=== PATIENT | male | born 1945 | race Caucasian/White ===

== ENCOUNTER 2021-09-14 10:24 | Observation (INO) | payer OTHER ==
[~2021-09-14] VITALS: Ht 188 cm; Wt 108.7 kg
[2021-09-14 11:11] LABS: BASOPHILS ABSOLUTE AUTO 0.03 K/mm3 (0.00-0.23); BASOPHILS PERCENT AUTO 0 % (0-2); EOSINOPHILS ABSOLUTE AUTO 0.01 K/mm3 (0.00-0.68); EOSINOPHILS PERCENT AUTO 0 % (0-6); Hematocrit 35.2 % (37.0-53.0); Hemoglobin 12.3 g/dL (13.5-17.5); IMMATURE GRAN ABSOLUTE AUTO 0.03 K/mm3 (0.00-0.10); IMMATURE GRAN PERCENT AUTO 0 % (0-1); LYMPHOCYTES ABSOLUTE AUTO 1.12 K/mm3 (0.84-5.20); LYMPHOCYTES PERCENT AUTO 11 % (21-46); MONOCYTES ABSOLUTE AUTO 0.77 K/mm3 (0.16-1.47); MONOCYTES PERCENT AUTO 7 % (4-13); Mean Corpuscular HGB 33.1 pg (26.0-34.0); Mean Corpuscular HGB Conc 34.9 g/dL (31.5-36.5); Mean Corpuscular Volume 95 fL (80-100); Mean Platelet Volume 12.2 fL (9.1-12.4); NEUTROPHILS ABSOLUTE AUTO 8.66 K/mm3 (1.96-9.15); NEUTROPHILS PERCENT AUTO 82 % (41-73); Platelet Count 155 K/mm3 (150-400); RDW Coefficient Variation 12.9 % (11.7-14.2); RDW Standard Deviation 44.2 fL (35.1-46.3); Red Blood Cell Count 3.72 M/mm3 (4.30-5.90); White Blood Cell Count 10.62 K/mm3 (4.00-11.30)
[2021-09-14 11:22] LABS: Alanine Aminotransfer (ALT/SGP 23 U/L (12-78); Albumin, Blood 3.5 g/dL (3.4-5.0); Albumin/Globulin Ratio 1.1 (0.8-1.8); Alk Phos 82 U/L (50-136); Anion Gap 10 mmol/L (6-16); Aspartate Aminotrans (AST/SGOT 28 U/L (12-37); Blood Urea Nitrogen 37 mg/dL (8-24); Bun/Creatinine Ratio 36.3 (12.0-20.0); CO2, Blood 21 mmol/L (21-32); Chloride, Blood 112 mmol/L (98-108); Creatinine, Blood 1.02 mg/dL (0.60-1.20); Globulin, Blood 3.2 g/dL (2.2-4.0); Glomerular Filtration Rate >60 (60-); Glucose, Blood 124 mg/dL (70-99); Potassium, Blood 4.1 mmol/L (3.5-5.5); Sodium, Blood 143 mmol/L (136-145); Total Protein, Blood 6.7 g/dL (6.4-8.2)
[2021-09-14 11:39] LABS: Source, Urine Clean Catch
[2021-09-14 11:57] LABS: Appearance, Urine Clear (Clear); Bilirubin, Urine Neg (Neg); Blood, Urine Neg (Neg); Color, Urine Amber (P-Yellow); Glucose Qualitative, Urine Neg (Neg); Ketones, Urine Neg (Neg); Leukocyte Esterase, Urine Neg (Neg); Nitrite, Urine Neg (Neg); Protein, Urine 1+ (Neg); Urobilinogen, Urine NORM (Normal)
[2021-09-14 16:09] LABS: Influenza A, PCR NEGATIVE (NEGATIVE); Influenza B, PCR NEGATIVE (NEGATIVE); Resp Syncytial Virus, PCR NEGATIVE (NEGATIVE); SARS-Cov-2 (COVID-19) PCR, MMC NEGATIVE (NEGATIVE)
[2021-09-14 16:22] LABS: Hematocrit 34.7 % (37.0-53.0)
[2021-09-14] MEDS ORDERED: METO25 PO (17:38)
[2021-09-14] MEDS ORDERED: ELIQUIS2.5 MG PO (17:39)
--- NOTE | 2021-09-14 18:43 | NUR ---
1715 RECEIVED PT TO RM 339 VIA W/C FROM ER. PT IS A&O, PLEASANT AND CO-OP. ABLE TO TX SELF TO BED. ADMITTED FOR MELENA. RECEIVED REPORT FROM POORNIMA KLEIN. PT TO ER VIA EMS WITH C/O TARRY BLACK STOOLS X3 DAYS. PT STOP TAKING HIS ELIQUIS TUESDAY AM. CALLED EMS AFTER BECOMING DIZZY IN B[facility] THIS AM. HX OF A-FIB AND PACER. ALSO HX OF COLON CA, IN REMISSION SINCE APPROX 2004, PER PT. UP TO RM WITH PROTONIX DRIP. DR ZIMMERMAN HERE RECENTLY TO SEE PT. CL DIET FOR DINNER AND AGAIN FOR BREAKFAST AND THEN JUST WATER PER DR ZIMMERMAN. ORDERS TO FOLLOW. SB AT 59 PER TELE MX. UP TO BTH[facility] INDEPENDENTLY TO VOID. CALL LT IN REACH. ABLE TO MAKE NEEDS KNOWN. RESTING QUIETLY WATCHING TV. DENIES FURTHER NEEDS. REPORT GIVEN TO FRANCISCO KLEIN.
--- NOTE | 2021-09-14 19:33 | NUR ---
RECEIVED REPORT FROM ERNIE REDD. PT A/O. INDEP IN RM. ON RA. PROT GTT INFUSING WITHOUT DIFFICULTY TO RAC. PACED AT 60 PER TELE MONITOR, JOSTIN. WILL PROVIDE CARE T/O SHIFT. CALL LT IN REACH.
--- NOTE | 2021-09-14 21:09 | NUR ---
PT AWAKE AND WATCHING TV. STATES HE'S DOING JUST FINE. PROT GTT INFUSING WITHOUT DIFFICULTY. NO NEEDS AT THIS TIME. CALL LT IN REACH.
--- NOTE | 2021-09-14 21:36 | NUR ---
PT WATCHING TV. NO NEEDS. CALL LT IN REACH.
[2021-09-14 23:00] LABS: Hematocrit 30.9 % (37.0-53.0); Hemoglobin 11.1 g/dL (13.5-17.5)
--- NOTE | 2021-09-15 04:04 | NUR ---
PT UP TO THE BATHROOM. STATES HE'S DOING OK JUST HAVING A HARD TIME RESTING AWAY FROM HOME. PROT GTT INFUSING WITHOUT DIFFICULTY. EXTRA PILLOW GIVEN. CALL LT IN REACH.
--- NOTE | 2021-09-15 04:13 | NUR ---
SHIFT SUMMARY: A/O. INDEP IN RM. RA. PACED AT 60 ON TELE. VSS. H & H STABLE. NO COMPLAINTS OF CP, SOB OR BEING LIGHT HEADED. PROT GTT INFUSING T/O SHIFT. UP TO BATHROOM WITHOUT DIFFICULTY. NO REPORTED STOOLS. PLAN IS EGD TODAY. NO ACUTE CHANGES. WILL CONTINUE TO PROVIDE CARE UNTIL SHIFT REPORT TO ONCOMING NURSE.
[2021-09-15 04:57] LABS: BASOPHILS ABSOLUTE AUTO 0.02 K/mm3 (0.00-0.23); BASOPHILS PERCENT AUTO 0 % (0-2); EOSINOPHILS ABSOLUTE AUTO 0.08 K/mm3 (0.00-0.68); EOSINOPHILS PERCENT AUTO 1 % (0-6); Hematocrit 31.6 % (37.0-53.0); Hemoglobin 11.1 g/dL (13.5-17.5); IMMATURE GRAN ABSOLUTE AUTO 0.01 K/mm3 (0.00-0.10); IMMATURE GRAN PERCENT AUTO 0 % (0-1); LYMPHOCYTES ABSOLUTE AUTO 2.03 K/mm3 (0.84-5.20); LYMPHOCYTES PERCENT AUTO 29 % (21-46); MONOCYTES ABSOLUTE AUTO 0.69 K/mm3 (0.16-1.47); MONOCYTES PERCENT AUTO 10 % (4-13); Mean Corpuscular HGB 32.5 pg (26.0-34.0); Mean Corpuscular HGB Conc 35.1 g/dL (31.5-36.5); Mean Corpuscular Volume 92 fL (80-100); Mean Platelet Volume 11.8 fL (9.1-12.4); NEUTROPHILS ABSOLUTE AUTO 4.12 K/mm3 (1.96-9.15); NEUTROPHILS PERCENT AUTO 59 % (41-73); Platelet Count 125 K/mm3 (150-400); RDW Standard Deviation 42.6 fL (35.1-46.3); Red Blood Cell Count 3.42 M/mm3 (4.30-5.90); White Blood Cell Count 6.95 K/mm3 (4.00-11.30)
--- NOTE | 2021-09-15 05:12 | NUR ---
NO NEEDS AT THIS TIME. CALL LT IN REACH.
[2021-09-15 05:53] LABS: Anion Gap 8 mmol/L (6-16); Blood Urea Nitrogen 28 mg/dL (8-24); Bun/Creatinine Ratio 29.4 (12.0-20.0); CO2, Blood 23 mmol/L (21-32); Calcium, Blood 8.9 mg/dL (8.5-10.1); Chloride, Blood 111 mmol/L (98-108); Creatinine, Blood 0.95 mg/dL (0.60-1.20); Glomerular Filtration Rate >60 (60-); Glucose, Blood 102 mg/dL (70-99); Sodium, Blood 142 mmol/L (136-145)
--- NOTE | 2021-09-15 13:34 | NUR ---
INTO [facility] FROM [facility]. History, Chart, Medications and Allergies reviewed before start of procedure.Patient confirms NPO status and agrees with scheduled surgery. Lungs clear T/O to Auscultation.WATCH LEFT IN PT ROOM ON SIDE TABLE.
--- NOTE | 2021-09-15 13:51 | NUR ---
09/15/21 1351 Pascual Webber History, Chart, Medications and Allergies reviewed before start of procedure. Patient confirms NPO status and agrees with scheduled surgery. 3-LEAD EKG REVIEWED WITH PHYSICIAN PRIOR TO START OF PROCEDURE. MONITOR INTACT WITH CONTINUOUS PULSE OXIMETRY AND INTERMITTENT BP. PATIENT DETERMINED TO BE ASA APPROPRIATE FOR PROPOFOL SEDATION PRIOR TO START OF PROCEDURE BY DR. ZIMMERMAN. BITE BLOCK WILL BE PLACED AND REMOVED AFTER PROCEDURE.
--- NOTE | 2021-09-15 16:37 | NUR ---
SHIFT SUMMARY PT RESTING QUIETLY AT START OF SHIFT. PT NPO FOR EGD TODAY. PROTONIX DRIP INFUSING PER EMAR; STOPPED WHEN PT WENT FOR PROCEDURE. DR ZIMMERMAN STATED AFTER PROCEDURE THAT PROTONIX WOULD BE CHANGED TO IVP BID. PER DR ZIMMERMAN, PT TO HAVE CT WITH CONTRAST FOR NODULE/ULCER FOUND AT THE BEGINNING OF STOMACH. PT SHOWED PICTURES OF ULCER BLEEDING, BY DR ZIMMERMAN. DIET TO BE RETURNED TO CLEAR LIQUID FOR NOW AND FOR DINNER AND THEN NPO WHEN STARTING CONTRAST TONIGHT, BEFORE BED. PT GIVEN WATER AND APPLE JUICE AFTER EGD. UP INDEPENDENTLY TO BTHRM. TALKING ON PHONE OFF AND ON AND RESTING QUIETLY IN BETWEEN. PLEASANT AND CO-OP. NO COMPLAINTS. CALL LT IN REACH. ABLE TO MAKE NEEDS KNOWN.
[2021-09-16 08:57] LABS: Hematocrit 31.5 % (37.0-53.0); Hemoglobin 11.1 g/dL (13.5-17.5); Mean Corpuscular HGB Conc 35.2 g/dL (31.5-36.5); Mean Corpuscular Volume 94 fL (80-100); Mean Platelet Volume 11.8 fL (9.1-12.4); Platelet Count 130 K/mm3 (150-400); RDW Coefficient Variation 13.2 % (11.7-14.2); RDW Standard Deviation 44.1 fL (35.1-46.3); Red Blood Cell Count 3.36 M/mm3 (4.30-5.90); White Blood Cell Count 8.09 K/mm3 (4.00-11.30)
[2021-09-16 09:24] LABS: Albumin, Blood 3.2 g/dL (3.4-5.0); Anion Gap 9 mmol/L (6-16); Blood Urea Nitrogen 16 mg/dL (8-24); Bun/Creatinine Ratio 16.2 (12.0-20.0); CO2, Blood 25 mmol/L (21-32); Calcium, Blood 8.8 mg/dL (8.5-10.1); Chloride, Blood 106 mmol/L (98-108); Creatinine, Blood 0.99 mg/dL (0.60-1.20); Glomerular Filtration Rate >60 (60-); Glucose, Blood 127 mg/dL (70-99); Potassium, Blood 3.9 mmol/L (3.5-5.5); Sodium, Blood 140 mmol/L (136-145)
--- NOTE | 2021-09-16 11:00 | NUR ---
LEFT VOICE MAIL ON PHONE THAT CT READ AND IN COMPUTER.
[2021-09-16] MEDS ORDERED: PANT40 PO (14:06)
== END 2021-09-16 16:11 | disposition home or self-care (01) ==
LOC: ER 10:24 → ERHOLD 10:25 → MEDS 10:25
PROVIDERS: Internal Medicine; Internal Medicine Gastroenterology; Physician Assistant; ADMIT Family Medicine
PROC: 0DJ08ZZ Inspection of Upper Intestinal Tract, Via Natural or Artificial Opening Endoscopic (ICD-10-PCS; principal; 2021-09-15 12:00)
DX: K25.4 Chronic or unspecified gastric ulcer with hemorrhage (principal); I48.20 Chronic atrial fibrillation, unspecified; D64.9 Anemia, unspecified; Z79.01 Long term (current) use of anticoagulants; Z85.038 Personal history of other malignant neoplasm of large intestine; Z90.49 Acquired absence of other specified parts of digestive tract; Z87.891 Personal history of nicotine dependence; Z20.822 Contact with and (suspected) exposure to COVID-19
CPT/HCPCS: 0241U; 36415; 71260; 74176; 74177; 80048; 80053; 80069; 82272; 85014; 85018; 85025; 85027; 93005; 93010; 96365; 96366; 96376; 99285-25; A9270; C9113; G0378; J2704; J7120; Q9967